=== PATIENT | female | born 1965 | race Caucasian/White ===

== ENCOUNTER → 2017-04-15 | Outpatient (CLI) | payer OTHER, MEDICAID ==
--- NOTE | 2017-04-15 16:32 | RAD ---
Examination: Chest x-ray. Clinical History: Dizziness, shortness of breath, congestion. Technique: PA and lateral views of the chest were obtained. Comparison: None available. Findings: The lung apices were omitted from the image on the PA view. The lungs are mildly hypoventilated, precluding evaluation of the heart size. No pneumothorax or pleural effusion is noted. No pulmonary opacity is noted. Degenerative changes are noted in the spine. No acute osseous abnormality is noted. Impression: 1. Mildly hypoventilated lungs. Reported By:
--- NOTE | 2017-04-15 17:31 | CT ---
HISTORY: Hoarseness, heavy breathing. Study: CT soft tissue neck without contrast Comparison: None. Technique: Multiple axial images of the soft tissue neck were obtained from skull base to the aortic arch without the administration of IV contrast. Sagittal and coronal reformats were performed and re viewed. Dose reduction techniques including Automated Exposure Control (AEC) and adjustment of mA an d kV were utilized. Findings: Limited study secondary to lack of IV contrast. The visualized portions of the posterior fossa and orbits are unremarkable in appearance. The paroti d glands, submandibular glands, and thyroid gland are unremarkable in their noncontrast appearance. The carotid space on the right and left is unremarkable. No mass or significant lymphadenopathy can be identified. The prevertebral and paraspinous regions are unremarkable. The nasopharynx, orophary nx, hypopharynx are unremarkable. The larynx appears symmetric. The vascular structures are unremar kable in their appearance. The aortic arch is unremarkable. The visualized portions of the mediasti num are unremarkable as well. Moderate to severe mucosal thickening of the visualized paranasal sinus es. The mastoid air cells are opacified. The bony structures appear intact. The visualized portions of the lung apex on the right and left are unremarkable as well. IMPRESSION: 1. Sinuses and mastoid air cell disease as above. 2. Remaining exam is unremarkable. Reported By:
== END | disposition home or self-care (01) | DRG 149 ==
LOC: RAD 15:44
PROVIDERS: ATTEND Internal Medicine
DX: R42 Dizziness and giddiness (principal); R06.02 Shortness of breath; R09.89 Other specified symptoms and signs involving the circulatory and respiratory systems
CPT/HCPCS: 70490; 71020